=== PATIENT | female | born 1990 | race Caucasian/White ===

== ENCOUNTER 2017-04-21 13:51 | Emergency (ER) | payer OTHER ==
[~2017-04-21] VITALS: Ht 172.7 cm; Wt 79.8 kg
[2017-04-21 13:54] VITALS: TEMP 36.4; Ht 172.7 cm; Wt 79.8 kg
[2017-04-21 14:08] VITALS: O2SAT 100
[2017-04-21] MEDS ORDERED: METHYLPREDNISOLONE 125 MG VIAL IV STA (14:23)
[2017-04-21] MEDS ORDERED: RANITIDINE HCL 50 MG/100 ML D5W IV STA (14:23)
[2017-04-21] MEDS ORDERED: DiphenhydrAMINE HCL 50 MG/ML VIAL IV STA (14:23)
--- NOTE | 2017-04-21 14:28 | EMERGENCY ROOM VISIT NOTE ---
History Report prepared by Tosin: Dallas Recinos Under the Supervision of: Dr. Johnathan Paz M.D. First contact with patient: 14:15 Chief Complaint: ALLERGIC REACTION Stated Complaint: ALLERGIC REACTION,SOB Nursing Triage Summary: patient reports unknown exposure one week ago, began with generalized hives, states "I was put on meds, steroids, today I feel like I'm having trouble breathing and my tongue feels swollen." History of Present Illness The patient is a 27 year old female who presents to the Emergency Room with complaints of an allergic reaction that occurred 1 week ago. She describes this reaction as diffuse hives on her entire body. She does not know what caused this reaction. This has never happened to her before. She was placed on Prednisone and Benadryl, which she stopped two days ago. At this time, her tongue began to swell, and she was having an increased trouble breathing. Since then, she states that her chest and throat feel tight. She denies any rash or itching now. She denies any bug bites or stings or strange exposures. She notes that she started taking vitamin B12 recently. She did not take Benadryl today. She is not on any regular medications. She does not think she is . Source of History: patient Onset: 2 days ago Position: other (Respiratory system) Symptom Intensity: mild Quality: other (Shortness of breath) Timing: constant Associated Symptoms: + chest pain (tightness), No rash Note: She notes some tongue swelling and throat tightness. Review of Systems See HPI for pertinent positives & negatives. A total of 10 systems reviewed and were otherwise negative. Past Medical & Surgical Medical Problems: (1) No Known Active Medical Problems Old medical records were attempted to be reviewed but there are no old records at this hospital. Nurse's notes were reviewed and I agree with. Family History FHx: cancer Hypertension Social History Smoking Status: Never Smoker Smokeless Tobacco Use: No Alcohol Use: occasionally Drug Use: none Marital Status: Housing Status: lives alone Occupation Status: employed Current/Historical Medications Scheduled Prednisone (Prednisone), 50 MG PO DAILY Allergies Coded Allergies: No Known Allergies (Unverified , 04/21/17) Physical Exam Vital Signs Date Time Temp Pulse Resp B/P (MAP) Pulse Ox O2 Delivery O2 Flow Rate FiO2 04/21/17 16:11 69 18 110/73 100 04/21/17 15:29 58 20 108/71 100 Room Air 04/21/17 14:21 66 04/21/17 14:08 100 Room Air 04/21/17 13:54 36.4 70 20 132/88 100 Room Air 04/21/17 13:54 100 Room Air Physical Exam General: Well developed well nourished non-ill appearing young female in no acute distress, breathing comfortably on room air. Normal speech HEENT: Normal cephalic atraumatic. Pupils are equal round and reactive to light. Extraocular movements are intact. Oropharynx is pink with moist mucous membranes. No swelling of the mouth or lips. No posterior oropharynx swelling. Questionable mild swelling of the tongue. Neck: Supple with a midline trachea. No meningeal signs or stiffness, no JVD or bruits. No Stridor. Chest: Clear to auscultation bilaterally. No wheezes or rhonchi. No increased work of breathing. Heart: regular rate and rhythm. Abdomen: Soft nontender, nondistended without rebound guarding or rigidity. Extremities: No cyanosis clubbing or edema. No calf tenderness or assymetry Spine/Back. Non tender to palpation. No CVA tenderness Skin: Good turgor without rashes. Neurologic exam: Cranial nerves two through 12 are intact. Motor and sensation are intact and symmetrical throughout. Medical Decision & Procedures ER Provider Diagnostic Interpretation: Radiology results as stated below per my review and radiologist interpretation: CHEST ONE VIEW PORTABLE CLINICAL HISTORY: CHEST PAIN dyspnea COMPARISON STUDY: No previous studies for comparison. FINDINGS: The bones soft tissues and hemidiaphragms are normal. The cardiomediastinal silhouette is normal. The lungs are clear. The pulmonary vasculature is normal. IMPRESSION: Negative chest. The above report was generated using voice recognition software. It may contain grammatical, syntax or spelling errors. Electronically signed by: Tyrone Morejon M.D. 04/21/2017 2:48 PM Dictated Date/Time: 04/21/2017 2:48 PM Laboratory Results 04/21/17 14:10 Red Blood Count 4.25, Mean Corpuscular Volume 88.9, Mean Corpuscular Hemoglobin 28.7, Mean Corpuscular Hemoglobin Concent 32.3, Mean Platelet Volume 9.3, Neutrophils (%) (Auto) 52.9, Lymphocytes (%) (Auto) 36.5, Monocytes (%) (Auto) 8.8, Eosinophils (%) (Auto) 1.3, Basophils (%) (Auto) 0.1, Neutrophils # (Auto) 4.72, Lymphocytes # (Auto) 3.27, Monocytes # (Auto) 0.79, Eosinophils # (Auto) 0.12, Basophils # (Auto) 0.01 04/21/17 14:10 Test 04/21/17 14:10 04/21/17 14:31 White Blood Count 8.95 K/uL (4.8-10.8) Red Blood Count 4.25 M/uL (4.2-5.4) Hemoglobin 12.2 g/dL (12.0-16.0) Hematocrit 37.8 % (37-47) Mean Corpuscular Volume 88.9 fL (80-100) Mean Corpuscular Hemoglobin 28.7 pg (25-34) Mean Corpuscular Hemoglobin Concent 32.3 g/dl (32-36) Platelet Count 315 K/uL (130-400) Mean Platelet Volume 9.3 fL (7.4-10.4) Neutrophils (%) (Auto) 52.9 % Lymphocytes (%) (Auto) 36.5 % Monocytes (%) (Auto) 8.8 % Eosinophils (%) (Auto) 1.3 % Basophils (%) (Auto) 0.1 % Neutrophils # (Auto) 4.72 K/uL (1.4-6.5) Lymphocytes # (Auto) 3.27 K/uL (1.2-3.4) Monocytes # (Auto) 0.79 K/uL (0.11-0.59) Eosinophils # (Auto) 0.12 K/uL (0-0.5) Basophils # (Auto) 0.01 K/uL (0-0.2) RDW Standard Deviation 48.2 fL (36.4-46.3) RDW Coefficient of Variation 14.8 % (11.5-14.5) Immature Granulocyte % (Auto) 0.4 % Immature Granulocyte # (Auto) 0.04 K/uL (0.00-0.02) Anion Gap 7.0 mmol/L (3-11) Est Creatinine Clear Calc Drug Dose 85.9 ml/min Estimated GFR () 80.2 Estimated GFR (Non- 69.2 BUN/Creatinine Ratio 13.7 (10-20) Calcium Level 9.2 mg/dl (8.5-10.1) Human Chorionic Gonadotropin, Qual NEG (NEG) Bedside Troponin I < 0.030 ng/ml (0-0.045) Laboratory studies as stated above per my review. Medications Administered Medications (Trade) Dose Ordered Sig/Sinai Route Start Time Stop Time Status Last Admin Dose Admin Methylprednisolone Sodium Succinate (Solu-Medrol IV) 125 mg ONE STAT IV 04/21/17 14:23 04/21/17 14:26 DC 04/21/17 14:37 125 MG Diphenhydramine HCl (Benadryl Inj) 25 mg NOW STAT IV 04/21/17 14:23 04/21/17 14:26 DC 04/21/17 14:36 25 MG Ranitidine HCl (zANTac IV) 50 mg NOW STAT IV 04/21/17 14:23 04/21/17 14:26 DC 04/21/17 14:37 50 MG ECG Indication: SOB/dyspnea Rate (beats per minute): 60 Rhythm: normal sinus Findings: no acute ischemic change, no ectopy, other (Short P-R interval) Comparison ECG Date: no prior available ED Course 1415: Past medical records reviewed. The patient was evaluated in room A2, and a complete history and physical examination were performed. 1423: Ordered Ranitidine HCl 50 mg IV, Benadryl Inj 25 mg IV, Solu-Medrol IV 125 mg IV 1526: The patient is feeling somewhat better at this time. 1554: She is still doing well. There is no significant swelling of the tongue or the posterior oropharynx. The case monitor is helping her get a follow up appointment with an environmental systems coordinator. 1600: Upon reevaluation, the patient is resting. I discussed the results and treatment plan with her. She verbalized agreement of the treatment plan. The patient was discharged home. Medical Decision Differentials include, but are not limited to; allergic reaction, infection, anxiety, and electrolyte or metabolic abnormality. Medication Reconciliation: I attest that I have personally reviewed the patient' s current medication list. Blood Pressure Screening: Patient was found to have a slightly elevated blood pressure due to circumstances. I do not believe that the patient requires hypertension monitoring. This patient comes in as described above. She's had been having allergic reaction type symptoms for about a week . She feels like her tongue is swollen. Earlier, she was short of breath although she feels better in that regard now. She looks well on exam. She is in no distress. She is speaking and swallowing without any difficulties. Her tongue is minimally to non- swollen. The posterior oropharynx is wide open. The floor the mouth is soft. She has no stridor or drooling. She has no GI symptoms she has no hives. IV access was established and she was given Solu-Medrol 125 mg IV, Benadryl, 25 mg IV, Zantac 50 mg IV. Multiple blood testing was obtained. She was reassessed frequently. EKG and chest x-ray are also obtained. EKG does not suggest acute coronary syndrome or arrhythmia. Chest x-ray is clear. Blood work was unremarkable. She remained stable and had no hives while she was here should no significant swelling. Upon reassessment several times, she's doing well appears in no distress. I encouraged her to follow up with her regular doctor, she is going to establish with somebody locally. I had our case management team talk to her as well to try to help her get in. She is going to try on her own and call us if there are any problems. Her MT interval is mildly short and I do not think is causing her symptoms today but I recommend she follow up with her regular doctor. She says she does occasionally have palpitations. I'm going to have her use steroids with prednisone 50 mg day for the next 4 more days. Use Benadryl as needed 25-50 mgs every 8 hours. She was warned this can make her drowsy and do not take before drinking, driving, working. She was happy with the plan and was discharged home. She was encouraged to return if: worsening of symptoms, shortness of breath, any new problems or concerns. Impression Primary Impression: Allergic reaction Scribe Attestation The scribe's documentation has been prepared under my direction and personally reviewed by me in its entirety. I confirm that the note above accurately reflects all work, treatment, procedures, and medical decision making performed by me. Departure Information Dispostion Home / Self-Care Prescriptions Prednisone (Prednisone) 50 Mg Tab 50 MG PO DAILY, #4 TAB Prov: Johnathan Paz M.D. 04/21/17 Referrals No Doctor, Assigned (PCP) Forms HOME CARE DOCUMENTATION FORM, IMPORTANT VISIT INFORMATION Patient Instructions My [facility] Whole Sale Fund Additional Instructions Rest. Drink plenty of fluids. Use prednisone 50 mg a day for the next 4 days Use Benadryl 25-50 mg every 8 hours if needed for itching or rash or swelling Return to the ER if: Worsening symptoms, shortness of breath, difficulty speaking or swallowing, fever chills, any new problems or concerns Follow-up with her primary doctor this early this week. Our case management team will help you get an appointment.
[2017-04-21 14:32] LABS: BASO % 0.1 %; BASO ABS # 0.01 K/uL (0-0.2); COMPLETE YES; EOS % 1.3 %; HEMATOCRIT 37.8 % (37-47); IG% 0.4 %; LYMPH % 36.5 %; LYMPH ABS # 3.27 K/uL (1.2-3.4); MEAN CELL VOLUME 88.9 fL (80-100); MEAN CORPUSCULAR HEMOGLOBIN 28.7 pg (25-34); MEAN CORPUSCULAR HGB CONC 32.3 g/dl (32-36); MEAN PLATELET VOLUME 9.3 fL (7.4-10.4); MONO % 8.8 %; NEUT % 52.9 %; PLATELET COUNT 315 K/uL (130-400); RED BLOOD COUNT 4.25 M/uL (4.2-5.4); WHITE BLOOD COUNT 8.95 K/uL (4.8-10.8)
[2017-04-21 14:39] LABS: BUN/CREATININE RATIO 13.7 (10-20); CALCIUM 9.2 mg/dl (8.5-10.1); CREATININE 1.1 mg/dl (0.60-1.20); POTASSIUM 3.5 mmol/L (3.5-5.1)
[2017-04-21 14:44] LABS: PREG INTERNAL NEGATIVE QC NEG CLEAR BACKGROUND; PREG INTERNAL POSITIVE QC POS CONTROL LINE
--- NOTE | 2017-04-21 14:49 | DIAGNOSTIC IMAGING REPORT ---
CHEST ONE VIEW PORTABLE CLINICAL HISTORY: CHEST PAIN dyspnea COMPARISON STUDY: No previous studies for comparison. FINDINGS: The bones soft tissues and hemidiaphragms are normal. The cardiomediastinal silhouette is normal. The lungs are clear. The pulmonary vasculature is normal. IMPRESSION: Negative chest. The above report was generated using voice recognition software. It may contain grammatical, syntax or spelling errors. Electronically signed by: Tyrone Morejon M.D. 04/21/2017 2:48 PM Dictated Date/Time: 04/21/2017 2:48 PM
[2017-04-21] MEDS ORDERED: PRED50TA PO (15:54)
[2017-04-21 16:11] VITALS: BP 110/73; PULSE 69; O2SAT 100
== END 2017-04-21 16:13 | disposition home or self-care (01) ==
LOC: C.EDB 13:53 → C.EDA 16:13
DX: T78.40XA Allergy, unspecified, initial encounter (principal); X58.XXXA Exposure to other specified factors, initial encounter

== ENCOUNTER → 2018-04-25 | Outpatient (CLI) | payer OTHER ==
[2018-04-25 17:37] LABS: BASO % 0.4 %; BASO ABS # 0.03 K/uL (0-0.2); EOS % 2.3 %; EOS ABS # 0.19 K/uL (0-0.5); HEMATOCRIT 36.2 % (37-47); IG# 0.01 K/uL (0.00-0.02); LYMPH % 39.7 %; LYMPH ABS # 3.25 K/uL (1.2-3.4); MEAN CELL VOLUME 92.8 fL (80-100); MEAN CORPUSCULAR HEMOGLOBIN 30.8 pg (25-34); MEAN CORPUSCULAR HGB CONC 33.1 g/dl (32-36); MEAN PLATELET VOLUME 9.6 fL (7.4-10.4); MONO % 6.6 %; MONO ABS # 0.54 K/uL (0.11-0.59); NEUT % 50.9 %; NEUT ABS # 4.16 K/uL (1.4-6.5); PLATELET COUNT 233 K/uL (130-400); RED CELL DISTRIBUTION WIDTH CV 13.3 % (11.5-14.5); WHITE BLOOD COUNT 8.18 K/uL (4.8-10.8)
== END | disposition home or self-care (01) ==
LOC: C.LAB1850 17:13
PROVIDERS: ATTEND Neuromusculoskeletal Medicine & OMM
DX: R53.83 Other fatigue (principal)